=== PATIENT | female | born 1975 | race Caucasian/White ===

== ENCOUNTER 2020-05-05 22:31 | Emergency (ER) | payer OTHER, SELFPAY ==
--- NOTE | ~2020-05-05 | XR_ITS ---
EXAMINATION: XR shoulder RT min 2V DATE: 05/06/2020 00:14 INDICATION: Right shoulder pain TECHNIQUE: AP internally and externally rotated, AP oblique externally rotated and transscapular Y vi ews of the right shoulder were obtained. COMPARISON: None FINDINGS: Normal alignment. No fracture. Glenohumeral joint is normal. Minimal acromioclavicular osteoarthriti s. Soft tissues are unremarkable. Visualized portions of the lungs are clear. IMPRESSION: No acute osseous abnormality. Reviewed, dictated and finalized at location A. S CUTTING MACHINE OPERATOR
--- NOTE | ~2020-05-05 | XR_ITS ---
EXAMINATION: XR knee RT 3V DATE: 05/06/2020 00:14 INDICATION: Right knee pain TECHNIQUE: Anteroposterior, oblique and crosstable lateral views of the right knee were obtained COMPARISON: None. FINDINGS: Alignment is normal. No fracture. Joint spaces appear unremarkable on nonweightbearing imaging. No j oint effusion/layering lipohemarthrosis. Soft tissues are unremarkable. IMPRESSION: 1. Negative right knee radiographs. Reviewed, dictated and finalized at location A. RITY DISPATCHER
--- NOTE | ~2020-05-05 | XR_ITS ---
EXAMINATION: XR hand LT min 3V DATE: 05/06/2020 00:15 INDICATION: In at the left fourth digit post injury TECHNIQUE: Posteroanterior, oblique and lateral views of the left hand were obtained. COMPARISON: None. FINDINGS: Minimal displacement of an intra-articular fracture at the radial base of the left fourth middle phal anx. Alignment is otherwise normal. No other fractures identified. Minimal polyarticular osteoarthrit is at multiple interphalangeal joints. IMPRESSION: 1. Minimally displaced intra-articular fracture at the radial base of the left fourth middle phalanx. Reviewed, dictated and finalized at location A. NG ASSISTANT
--- NOTE | ~2020-05-05 | XR_ITS ---
EXAMINATION:XR_CERV2-3V_CR DATE: 05/06/2020 00:14 INDICATION: Neck pain TECHNIQUE: AP, lateral and odontoid views of the cervical spine are provided. COMPARISON: None FINDINGS: Draining of the normal cervical lordosis. No spondylolisthesis or facet subluxation. Odontoid is inta ct. Normal atlantoaxial interval. Vertebral body heights are normal. Disc spaces are normal. Prever tebral soft tissues are normal. Visualized portions of the lungs are clear. IMPRESSION: 1. Straightening of the normal cervical lordosis which could be positional or secondary to muscle spa sm. No other osseous abnormality. Reviewed, dictated and finalized at location A. [employer] IMPRESSION: 1. Straightening of the normal cervical lordosis which could be positional or s econdary to muscle spasm. No other osseous abnormality.
--- NOTE | ~2020-05-05 | XR_ITS ---
EXAMINATION: XR hip RT 2V w AP pelvis DATE: 05/06/2020 00:14 INDICATION: Right hip pain post injury TECHNIQUE: Anteroposterior view of the pelvis and anteroposterior and frog-leg lateral views of the r ight hip were obtained. COMPARISON: None. FINDINGS: Bone alignment is normal. No fracture. Bilateral hip and sacroiliac joint spaces are normal. Transiti onal lumbosacral segment. IMPRESSION: 1. No acute osseous abnormality. Reviewed, dictated and finalized at location A. ON INSPECTOR
--- NOTE | ~2020-05-05 | XR_ITS ---
EXAMINATION: XR elbow RT 2V DATE: 05/06/2020 00:14 INDICATION: Right elbow pain with extension TECHNIQUE: Anteroposterior and lateral views of the right elbow were obtained. COMPARISON: None. FINDINGS: Alignment is normal. No fracture or joint effusion. Joint spaces are normal. Soft tissues are unremar kable. IMPRESSION: 1. Negative right elbow radiographs. Reviewed, dictated and finalized at location A. OM DESIGNER
[2020-05-05 22:33] VITALS: BP 134/109; PULSE 64; RESP 18; TEMP 37; O2SAT 100
[2020-05-05] MEDS: TETANUS,DIPHTHERIA,AC PERTUSSIS ADULT (0.5 ML) BOOSTRIX IM (23:24)
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
[2020-05-06 01:25] VITALS: BP 131/86; PULSE 78; RESP 18; TEMP 36.7; O2SAT 100
== END 2020-05-06 01:26 | disposition home or self-care (01) ==
PROVIDERS: Emergency Provider Emergency Medicine; PCP Family Medicine
DX: S62.625A Displaced fracture of middle phalanx of left ring finger, initial encounter for closed fracture (principal); S50.311A Abrasion of right elbow, initial encounter; S80.211A Abrasion, right knee, initial encounter; S16.1XXA Strain of muscle, fascia and tendon at neck level, initial encounter; S40.011A Contusion of right shoulder, initial encounter; Y04.0XXA Assault by unarmed brawl or fight, initial encounter; Z23 Encounter for immunization
CPT/HCPCS: 72040; 73030; 73070; 73130; 73502; 73562; 90471; 90715; 99284; A4565